=== PATIENT | male | born 1980 | race Caucasian/White ===

== ENCOUNTER 2018-08-24 19:23 | Emergency (ER) | payer OTHER ==
--- NOTE | 2018-08-24 20:08 | ER Document Report ---
ED Medical Screen (RME) - General Chief Complaint: Feet Swelling Stated Complaint: LEFT FOOT PAIN WITH SWELLING Time Seen by Provider: 08/24/18 20:06 Mode of Arrival: Ambulatory Information source: Patient Notes: Patient presents complaining of left foot pain and swelling for the past 2 weeks. Patient denies any injury. 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 I have greeted and performed a rapid initial assessment of this patient. A comprehensive ED assessment and evaluation of the patient, analysis of test results and completion of the medical decision making process will be conducted by additional ED providers. TRAVEL OUTSIDE OF THE [place] IN LAST 30 DAYS: No - Related Data Allergies/Adverse Reactions: acetaminophen [From Vicodin] Allergy (Mild, Verified 08/24/18 19:30) hydrocodone [From Vicodin] Allergy (Mild, Verified 08/24/18 19:30) tramadol Allergy (Mild, Verified 08/24/18 19:31) Physical Exam - Vital signs Vitals: Temp Pulse Resp BP Pulse Ox 98.0 F 100 18 127/82 H 96 08/24/18 19:41 08/24/18 19:41 08/24/18 19:41 08/24/18 19:41 08/24/18 19:41 - General Notes: 1+ edema to the left foot, generalized tenderness Course - Vital Signs Vital signs: Temp Pulse Resp BP Pulse Ox 98.0 F 100 18 127/82 H 96 08/24/18 19:41 08/24/18 19:41 08/24/18 19:41 08/24/18 19:41 08/24/18 19:41
[2018-08-24 20:44] LABS: ABSOLUTE BASOPHILS # (AUTO) 0.1 10^3/uL (0.0-0.2); ABSOLUTE EOSINOPHILS # (AUTO) 0.4 10^3/uL (0.0-0.6); ABSOLUTE LYMPHOCYTES (AUTO) 3.1 10^3/uL (0.5-4.7); EOSINOPHILS % (AUTO) 3.5 % (0-6); HEMATOCRIT 43.4 % (37.9-51.0); HEMOGLOBIN 14.9 g/dL (13.5-17.0); LYMPHOCYTES % (AUTO) 27.1 % (13-45); MEAN CORPUSCULAR HGB CONC 34.2 g/dL (32.0-36.0); MEAN CORPUSCULAR VOLUME 85 fl (80-97); MONOCYTES % (AUTO) 8.2 % (3-13); PLATELET COUNT 322 10^3/uL (150-450); RED BLOOD COUNT 5.13 10^6/uL (4.35-5.55); RED CELL DISTRIBUTION WIDTH 13.1 % (11.5-14.0); SEGMENTED NEUTROPHILS % (AUTO) 60.2 % (42-78); TOTAL CELLS COUNTED % (AUTO) 100 %; WHITE BLOOD COUNT 11.6 10^3/uL (4.0-10.5)
[2018-08-24 21:05] LABS: C-REACTIVE PROTEIN < 5.0 mg/L (<10.0)
[2018-08-24 21:24] LABS: ERYTHROCYTE SEDIMENTATION RATE 4 mm/hr (0-15)
[2018-08-24] MEDS ORDERED: OXYCODONE-ACETAMINOPHEN 5-325 MG TABLET PO ONE (23:46)
--- NOTE | 2018-08-24 23:47 | ER Document Report ---
ED General - General Chief Complaint: Feet Swelling Stated Complaint: LEFT FOOT PAIN WITH SWELLING Time Seen by Provider: 08/24/18 20:06 Mode of Arrival: Ambulatory TRAVEL OUTSIDE OF THE [place] IN LAST 30 DAYS: No - HPI Notes: 38-year-old male to the emergency department with complaints of progressively worsening left foot swelling and pain for the past 2 weeks. 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 For the past 2 weeks he is noticed swelling and pain but it got acutely worse today. Does admit that he had beef last night. He is not currently on any medicine for gout. He has been on colchicine before. States that NSAIDs tear of his stomach. States he has an appointment with the [facility] orthopedist at the end of this month for further evaluation of this foot pain - Related Data Allergies/Adverse Reactions: acetaminophen [From Vicodin] Allergy (Mild, Verified 08/24/18 19:30) hydrocodone [From Vicodin] Allergy (Mild, Verified 08/24/18 19:30) tramadol Allergy (Mild, Verified 08/24/18 19:31) Past Medical History - General Information source: Patient - Social History Smoking Status: Former Smoker Frequency of alcohol use: Rare Drug Abuse: None Family History: Reviewed & Not Pertinent Patient has suicidal ideation: No Patient has homicidal ideation: No - Past Medical History Cardiac Medical History: Reports: Hx Hypertension Renal/ Medical History: Denies: Hx Peritoneal Dialysis GI Medical History: Reports: Hx Gastroesophageal Reflux Disease Past Surgical History: Reports: Hx Orthopedic Surgery - bilateral shoulder Review of Systems - Review of Systems Constitutional: denies: Chills, Fever EENT: No symptoms reported Cardiovascular: denies: Chest pain Respiratory: denies: Cough, Short of breath Gastrointestinal: denies: Abdominal pain, Diarrhea, Nausea, Vomiting Musculoskeletal: Joint pain - Foot swelling and pain, Joint swelling Skin: Change in color - Mild left foot redness Hematologic/Lymphatic: No symptoms reported Neurological/Psychological: No symptoms reported -: Yes All other systems reviewed and negative Physical Exam - Vital signs Vitals: Temp Pulse Resp BP Pulse Ox 98.0 F 100 18 127/82 H 96 08/24/18 19:41 08/24/18 19:41 08/24/18 19:41 08/24/18 19:41 08/24/18 19:41 Interpretation: Normal - General General appearance: Appears well In distress: Mild Notes: Mild pain distress - HEENT Head: Normocephalic, Atraumatic Eyes: Normal Pupils: PERRL - Respiratory Respiratory status: No respiratory distress Chest status: Nontender Breath sounds: Normal Chest palpation: Normal - Cardiovascular Rhythm: Regular Heart sounds: Normal auscultation Murmur: No - Extremities Foot: Tender, Edema Notes: To the left foot there is noted dorsal edema and tenderness to palpation with mild erythema. The joint is not particularly hot to touch. There is no evidence of superimposed infection or abscess. There is no streaking lymphangitis of the leg. Patient does limp on the foot as he walks. But he has retained 5 out of 5 strength against resistance in flexion, extension, plantar flexion, dorsiflexion and bilateral lower extremity - Neurological Neuro grossly intact: Yes Cognition: Normal Orientation: AAOx4 [place] Coma Scale Eye Opening: Spontaneous Gwend[place]yn Coma Scale Verbal: Oriented [place] Coma Scale Motor: Obeys Commands [place] Coma Scale Total: 15 Speech: Normal Motor strength normal: LUE, RUE, LLE, RLE Sensory: Normal - Psychological Associated symptoms: Normal affect, Normal mood - Skin Skin Temperature: Warm Skin Moisture: Dry Skin Color: Normal Notes: See musculoskeletal on discussion of foot exam Course - Re-evaluation Re-evalutation: Impression:. Left gouty arthritis to the left foot. We will go ahead and start on steroid Dosepak, small amount of pain medicine, and colchicine. Encouraged him to keep his appoint with the orthopedist in [place]. Noted uric acid level and his exam is most consistent with gouty arthritis. Educated about purine-restricted diet. Patient agrees with the plan. Will discharge home. - Vital Signs Vital signs: Temp Pulse Resp BP Pulse Ox 98.1 F 94 20 126/75 H 98 08/25/18 00:15 08/25/18 00:15 08/25/18 00:15 08/25/18 00:15 08/25/18 00:15 - Laboratory Result Diagrams: 08/24/18 20:25 Laboratory results interpreted by me: 08/24/18 08/24/18 20:25 20:25 WBC 11.6 H Uric Acid 11.0 H Discharge - Discharge Clinical Impression: Gout, Left foot pain Condition: Stable Disposition: HOME, SELF-CARE Instructions: Gout ([facility]), Gout Diet ([facility]) Additional Instructions: FOLLOW UP WIHT ORTHOPEDIST SCHEDULED AT THE END OF THIS MONTH. FOLLOW UP WITH PRIMARY CARE. TAKE MEDICINES PRESCRIBED. PUSH FLUIDS. AVOID PURINE RICH FOODS SUCH BEEF, DIARY, ALCOHOL, SEAFOOD. Prescriptions: Colchicine [Colchicine 0.6 mg Tablet] 0.6 mg PO DAILY #20 tablet Methylprednisolone [Medrol Dosepack (4 mg/Tab) 21 Tab/Dosepak] 4 mg PO ASDIR PRN #21 tab.ds.pk PRN Reason: Oxycodone HCl/Acetaminophen [Percocet 5-325 mg Tablet] 1 - 2 tab PO Q6H PRN #15 tablet PRN Reason:
[2018-08-25] MEDS ORDERED: KETOROLAC TROMETHAMINE 60 MG/2 ML SDV IM ONE (00:20)
[2018-08-25 01:14] VITALS: BP 126/75
== END 2018-08-25 00:15 | disposition home or self-care (01) ==
LOC: ER 19:23
DX: M10.9 Gout, unspecified (principal); M79.672 Pain in left foot; M79.89 Other specified soft tissue disorders; I10 Essential (primary) hypertension
CPT/HCPCS: 99283; 96372; 36415; 84550; 85025; 85652; 86140; J1885

== ENCOUNTER 2019-02-21 12:32 | Emergency (ER) | payer OTHER ==
--- NOTE | 2019-02-21 13:53 | ER Document Report ---
ED Medical Screen (RME) - General TRAVEL OUTSIDE OF THE [place] IN LAST 30 DAYS: No - General Chief Complaint: Knee Pain Stated Complaint: LEFT KNEE PAIN Time Seen by Provider: 02/21/19 13:33 Notes: Patient is a 39-year-old male who presents the emergency department with a chief complaint of left knee pain. 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 Patient reports the only thing that seems to help with his discomfort is when he has the fluid drained. Patient denies recent injury. Patient reports he is not IV drug user, has not had a fever and has just been wearing his compression dressing to the left knee. (ZAHIRA CHAVEZ) - Related Data Allergies/Adverse Reactions: acetaminophen [From Vicodin] Allergy (Mild, Verified 08/24/18 19:30) hydrocodone [From Vicodin] Allergy (Mild, Verified 08/24/18 19:30) tramadol Allergy (Mild, Verified 08/24/18 19:31) Past Medical History - Social History Chew tobacco use (# tins/day): No Frequency of alcohol use: None Drug Abuse: None - Past Medical History Cardiac Medical History: Reports: Hx Hypertension Renal/ Medical History: Denies: Hx Peritoneal Dialysis GI Medical History: Reports: Hx Gastroesophageal Reflux Disease Past Surgical History: Reports: Hx Orthopedic Surgery - bilateral shoulder Physical Exam - Vital signs Vitals: Temp Pulse Resp BP Pulse Ox 97.8 F 100 18 149/60 H 96 02/21/19 12:42 02/21/19 12:42 02/21/19 12:42 02/21/19 12:42 02/21/19 12:42 Course - Re-evaluation Re-evalutation: 02/21/19 13:53 I have greeted and performed a rapid initial assessment of this patient. A comprehensive ED assessment and evaluation of the patient, analysis of test results and completion of the medical decision making process will be conducted by additional ED providers. (ZAHIRA CHAVEZ) - Vital Signs Vital signs: Temp Pulse Resp BP Pulse Ox 98.1 F 93 18 126/80 H 95 02/21/19 18:02 02/21/19 18:02 02/21/19 18:02 02/21/19 18:02 02/21/19 18:02
--- NOTE | 2019-02-21 14:41 | RADIOLOGY REPORT (SQ) ---
EXAM DESCRIPTION: KNEE LEFT 4 VIEW COMPLETED DATE/TIME: 02/21/2019 2:27 pm REASON FOR STUDY: left knee COMPARISON: None. NUMBER OF VIEWS: Four views. TECHNIQUE: AP, lateral, and both oblique radiographic images acquired of the left knee. LIMITATIONS: None. FINDINGS: MINERALIZATION: Normal. BONES: No acute fracture or dislocation. No worrisome bone lesions. JOINT: Small effusion. SOFT TISSUES: No soft tissue swelling. No radio-opaque foreign body. OTHER: No other significant finding. IMPRESSION: Small joint effusion without evidence of acute bony abnormality. TECHNICAL DOCUMENTATION: JOB ID: [id number] [employer]- All Rights Reserved Reading location - IP/workstation name: [email or web address]
--- NOTE | 2019-02-21 15:09 | ER Document Report ---
ED Extremity Problem, Lower - General Chief Complaint: Knee Pain Stated Complaint: LEFT KNEE PAIN Time Seen by Provider: 02/21/19 13:33 TRAVEL OUTSIDE OF THE [place] IN LAST 30 DAYS: No - HPI Notes: 39-year-old male says he is been to 5 different [address] trying to get fluid drained from his knee today says he has a history of recurrent knee effusions and "chondromalacia" in bilateral knees. he presents today for left knee swelling and pain over the last few days it has been gradual. Denies fever chills sweats or any overlying skin changes. He says is very painful to move the knee through any range of motion. He is avoiding bearing weight mainly to avoid range of motion associated with that but when he is just standing the active bearing weight does not worsen the pain. Reports he is never had a history of septic joint or been diagnosed with gout, does not think that they have ever tested his joint fluid for gout only have told him that he has had high uric acid levels in the blood. The last time he had any injections of anything into any of his knees was years ago he said. He did not have regular steroid injections but did have a provider that was intermittently doing drainage of his knee effusions when he was very active in the [employer] and injecting with synovium he thinks, which he believes is like a synovial fluid to add cushioning to the joint space. He has not had any inciting trauma or activities that he knows of its been gradual. He is been trying to elevate and keep the compression wrap on it but that is not seeming to help. He denies any bulging or pain behind the knee or instability of the knee on weightbearing. Is never had any retained hardware or surgeries in bilateral knees. He has had bilateral shoulder surgeries but otherwise still has no retained hardware surgery - Related Data Allergies/Adverse Reactions: acetaminophen [From Vicodin] Allergy (Mild, Verified 08/24/18 19:30) hydrocodone [From Vicodin] Allergy (Mild, Verified 08/24/18 19:30) tramadol Allergy (Mild, Verified 08/24/18 19:31) Past Medical History - Social History Smoking Status: Current Some Day Smoker Chew tobacco use (# tins/day): No Frequency of alcohol use: None Drug Abuse: None Family History: Reviewed & Not Pertinent Patient has suicidal ideation: No Patient has homicidal ideation: No - Past Medical History Cardiac Medical History: Reports: Hx Hypertension Renal/ Medical History: Denies: Hx Peritoneal Dialysis GI Medical History: Reports: Hx Gastroesophageal Reflux Disease Past Surgical History: Reports: Hx Orthopedic Surgery - bilateral shoulder Review of Systems - Review of Systems Constitutional: No symptoms reported EENT: No symptoms reported Cardiovascular: No symptoms reported Respiratory: No symptoms reported Gastrointestinal: No symptoms reported Genitourinary: No symptoms reported Male Genitourinary: No symptoms reported Musculoskeletal: See HPI Skin: No symptoms reported Hematologic/Lymphatic: No symptoms reported Neurological/Psychological: No symptoms reported Physical Exam - Vital signs Vitals: Temp Pulse Resp BP Pulse Ox 97.8 F 100 18 149/60 H 96 02/21/19 12:42 02/21/19 12:42 02/21/19 12:42 02/21/19 12:42 02/21/19 12:42 Interpretation: Normal - General General appearance: Appears well - Nontoxic-appearing no distress, Alert - HEENT Head: Normocephalic, Atraumatic Eyes: Normal Pupils: PERRL - Respiratory Respiratory status: No respiratory distress Chest status: Nontender Breath sounds: Normal Chest palpation: Normal - Cardiovascular Rhythm: Regular Heart sounds: Normal auscultation Murmur: No - Abdominal Inspection: Normal Distension: No distension Bowel sounds: Normal Tenderness: Nontender Organomegaly: No organomegaly - Back Back: Normal, Nontender - Extremities General upper extremity: Normal inspection, Nontender, Normal color, Normal ROM, Normal temperature General lower extremity: Other - L knee has obvious swelling compared to R. No overlying skin changes. The compartments are soft in the lower extremity as well as the proximal leg. Pulse 2+ popliteal dorsalis pedis. Distal extremity is warm well perfused. Intact discrimination of sharp and dull in all distal sensory distributions. Palpable effusion present at the lateral medial and anterior portions without predominance of one area of knee effusion. No Vaughn's cyst or other popliteal masses or tenderness. No calf tenderness or point bony patellar or tibial or ankle tenderness. No pain with full range of motion of the hip. He does have pain with active or passive motion in that knee joint. Again no warmth no overlying skin changes. - Neurological Neuro grossly intact: Yes Cognition: Normal Orientation: AAOx4 [place] Coma Scale Eye Opening: Spontaneous [place] Coma Scale Verbal: Oriented [place] Coma Scale Motor: Obeys Commands [place] Coma Scale Total: 15 Speech: Normal Motor strength normal: LUE, RUE, LLE, RLE Sensory: Normal - Psychological Associated symptoms: Normal affect, Normal mood - Skin Skin Temperature: Warm Skin Moisture: Dry Skin Color: Normal Course - Re-evaluation Re-evalutation: Reviewed Multiview x-ray of the left knee. No acute fractures no obvious joint degeneration or evidence of calcium deposition. + Knee effusion. he and discussed i can call if results show any crystals c/w gout/pseudogout, but that i believe on his exam and hx this is likely an effusion from OA w/o evidence of infection. discussed though signs to watch which would indicate infection erythena f/c/s/n/v, sever pain w/ any movement at the joint and worsening swelling despite elevation, nsaids, icing, and avoiding exacerbating behaviors in next few days. - Vital Signs Vital signs: Temp Pulse Resp BP Pulse Ox 98.1 F 93 18 126/80 H 95 02/21/19 18:02 02/21/19 18:02 02/21/19 18:02 02/21/19 18:02 02/21/19 18:02 Procedures - Joint Aspiration Left Knee Time completed: 17:40 Consent obtained: Yes Joint aspiration pre-procedure: Sterile PPE donned, Chloraprep applied - x3 Anesthetic type: 1% Lidocaine mL's of anesthetic: 6 Needle size: 25 Amount/type of drainage: Clear yellow synovial fluid aspirated on lateral approach 5cc Number of attempts: 1 Complications: No Discharge - Discharge Clinical Impression: Knee effusion, left Condition: Fair Disposition: HOME, SELF-CARE Additional Instructions: Today in the emergency department we performed an x-ray which did not show any new fractures just the joint effusion. We were able to pull 5 ml of synovial fluid on aspiration. If this does not show any crystals consistent with gout or pseudogout I do not currently feel concerned that this is a septic or infected joint. I am expecting you to feel much better in the next few days with the injection we did of the lidocaine and steroid. Again it is not recommended to have recurrent or repeat steroid injections and joint spaces. Try to elevate the extremity whenever you are sitting down and avoid standing or doing activities that bother it. Try to move as tolerated but again do not do things that make it worse or overuse it. Try using ibuprofen every 6 hours as needed for pain and continue to eat and drink well. You can also ice the joint in the next few days few times a day as you can. Mainly it will be important to elevate it to allow some of the swelling to start to come down. Prescriptions: Ibuprofen 600 mg PO Q6HP PRN 3 Days #36 tablet PRN Reason:
[2019-02-21] MEDS ORDERED: TRIAMCINOLONE ACETONIDE INJ 10 MG/1 ML 5 ML VIAL INJ ONE (16:30)
[2019-02-21] MEDS ORDERED: LIDOCAINE 1% INJ (10 MG/ML) 10 ML MDV INJ ONE (16:30)
[2019-02-21 18:03] VITALS: BP 126/80
[2019-02-21] MEDS ORDERED: KETOROLAC TROMETHAMINE INJ/PF 30 MG/1 ML SDV IV ONE (18:15)
[2019-02-21] MEDS ORDERED: KETOROLAC TROMETHAMINE INJ/PF 30 MG/1 ML SDV IM ONE (18:23)
[2019-02-21 18:42] LABS: CALCIUM PYROPHOSPHATE CRYSTALS NONE OBSERVED; MONOSODIUM URATE CRYSTALS NONE OBSERVED; OTHER CRYSTALS NONE OBSERVED
[2019-02-21 19:03] LABS: FLUID APPEARANCE CLOUDY; FLUID COLOR YELLOW; FLUID SOURCE KNEE; FLUID TYPE SYNOVIAL; FLUID VISCOSITY MODERATELY VISCOUS
== END 2019-02-21 18:57 | disposition home or self-care (01) ==
LOC: ER 12:32
DX: M25.462 Effusion, left knee (principal); M25.562 Pain in left knee; F17.200 Nicotine dependence, unspecified, uncomplicated; I10 Essential (primary) hypertension; Z88.8 Allergy status to other drugs, medicaments and biological substances; Z88.6 Allergy status to analgesic agent; Z88.5 Allergy status to narcotic agent
CPT/HCPCS: 99283; 96372; 89050; 89060; 73564; 20610; J1885; J3301

== ENCOUNTER 2019-06-17 12:00 | Emergency (ER) | payer OTHER ==
[2019-06-17 12:09] VITALS: BP 139/79
--- NOTE | 2019-06-17 12:19 | ER Document Report ---
ED Head/Face/Scalp Injury - General Chief Complaint: Facial Injury Stated Complaint: FACIAL INJURY Time Seen by Provider: 06/17/19 12:10 Mode of Arrival: Ambulatory Information source: Patient Notes: 39-year-old male presented to ED for a laceration to the face just above the left upper lip and inside the mouth at the same area. These are 2 different lacerations one is the tooth cut the inner part of the lip and the break she cut the outer part of the lip. He states he was working on the brake shoe and got frustrated through it it bounced off the cement and hit him in the face. TRAVEL OUTSIDE OF THE [place] IN LAST 30 DAYS: No - HPI Patient complains to provider of: Injury, Laceration, Pain, Swelling Injury to: Face, Mouth Location of problem: Mouth, Other Occurred: Just prior to arrival - Is Where: Home, Outdoors Timing: Still present Context: Direct blow Loss consciousness: No loss of consciousness Remembers: Injury, Coming to hospital - Related Data Allergies/Adverse Reactions: acetaminophen [From Vicodin] Allergy (Mild, Verified 06/17/19 12:10) hydrocodone [From Vicodin] Allergy (Mild, Verified 06/17/19 12:10) tramadol Allergy (Mild, Verified 06/17/19 12:10) Past Medical History - General Information source: Patient - Social History Smoking Status: Current Every Day Smoker Smoking Education Provided: Yes - 4 minutes Frequency of alcohol use: Occasional Drug Abuse: None Occupation: Marine Family History: Reviewed & Not Pertinent Patient has suicidal ideation: No Patient has homicidal ideation: No - Past Medical History Cardiac Medical History: Reports: Hx Hypertension Pulmonary Medical History: Reports: None EENT Medical History: Reports: None Neurological Medical History: Reports: None Endocrine Medical History: Reports: None Renal/ Medical History: Reports: None Malignancy Medical History: Reports None GI Medical History: Reports: Hx Gastroesophageal Reflux Disease Musculoskeletal Medical History: Reports None Skin Medical History: Reports None Psychiatric Medical History: Reports: None Traumatic Medical History: Reports: None Infectious Medical History: Reports: None Past Surgical History: Reports: Hx Orthopedic Surgery - bilateral shoulder - Immunizations Immunizations up to date: Yes Hx Diphtheria, Pertussis, Tetanus Vaccination: Yes Review of Systems - Review of Systems Constitutional: No symptoms reported EENT: No symptoms reported Cardiovascular: No symptoms reported Respiratory: No symptoms reported Gastrointestinal: No symptoms reported Genitourinary: No symptoms reported Male Genitourinary: No symptoms reported Musculoskeletal: No symptoms reported Skin: No symptoms reported Hematologic/Lymphatic: No symptoms reported Neurological/Psychological: No symptoms reported -: Yes All other systems reviewed and negative Physical Exam - Vital signs Vitals: Temp Pulse Resp BP Pulse Ox 98.8 F 96 16 139/79 H 97 06/17/19 12:07 06/17/19 12:07 06/17/19 12:07 06/17/19 12:07 06/17/19 12:07 Interpretation: Normal - General General appearance: Appears well, Alert - HEENT Head: Open wounds, Tenderness Eyes: Normal Pupils: PERRL Ears: Normal External canal: Normal Tympanic membrane: Normal Sinus: Normal Nasal: Normal Mouth/Lips: Normal Mucous membranes: Other Pharynx: Normal - Oral laceration Neck: Normal - Respiratory Respiratory status: No respiratory distress Chest status: Nontender Breath sounds: Normal Chest palpation: Normal - Cardiovascular Rhythm: Regular Heart sounds: Normal auscultation Murmur: No - Abdominal Inspection: Normal Distension: No distension Bowel sounds: Normal Tenderness: Nontender Organomegaly: No organomegaly - Back Back: Normal, Nontender - Extremities General upper extremity: Normal inspection, Nontender, Normal color, Normal ROM, Normal temperature General lower extremity: Normal inspection, Nontender, Normal color, Normal ROM, Normal temperature, Normal weight bearing. No: Vita's sign - Neurological Neuro grossly intact: Yes Cognition: Normal Orientation: AAOx4 Gwendolyn Coma Scale Eye Opening: Spontaneous [place] Coma Scale Verbal: Oriented [place] Coma Scale Motor: Obeys Commands [place] Coma Scale Total: 15 Speech: Normal Motor strength normal: LUE, RUE, LLE, RLE Sensory: Normal - Psychological Associated symptoms: Normal affect, Normal mood - Skin Skin Temperature: Warm Skin Moisture: Dry Skin Color: Normal Skin irregularity: Laceration Location of irregularity: Face - Laceration about the left side of the upper lip irregular about 1-1/2 cm very superficial Course - Re-evaluation Re-evalutation: 06/17/19 12:27 Cleaned facial laceration with soap and water dried well used Dermabond to close. Patient started on Augmentin. - Vital Signs Vital signs: Temp Pulse Resp BP Pulse Ox 98.8 F 96 16 139/79 H 97 06/17/19 12:10 06/17/19 12:07 06/17/19 12:07 06/17/19 12:07 06/17/19 12:07 Procedures - Laceration/Wound Repair Right chest above left upper lip Time completed: 12:28 Wound length (cm): 1.5 Wound's Depth, Shape: Superficial, Irregular Laceration pre-procedure: Shur-Clens applied Anesthetic type: Other - 0 Volume Anesthetic (mLs): 0 Wound explored: Contaminated Irrigated w/ Saline (mLs): 200 Wound Repaired With: Dermabond Post-procedure NV exam normal: Yes Complications: No Discharge - Discharge Clinical Impression: Facial laceration Qualifiers: Encounter type: initial encounter Qualified Code(s): S01.81XA - Laceration without foreign body of other part of head, initial encounter Laceration of oral cavity Qualifiers: Encounter type: initial encounter Qualified Code(s): S01.512A - Laceration without foreign body of oral cavity, initial encounter Condition: Stable Disposition: HOME, SELF-CARE Additional Instructions: NON-SUTURED LACERATION: Your laceration did not require suturing. Some lacerations cannot be sutured because of increased infection risk, while others simply don't need stitches because they are shallow or very short. Your injury should be protected while it heals. Usually complete healing takes 10 to 14 days. Keep the dressing clean and dry, and change it every day. If you notice increasing pain, redness, swelling, drainage, or tender lumps in the armpit or groin above the injury, infection may be present. You should call the doctor at once. Dermabond (Skin Adhesive Closure) Skin adhesive (such as Dermabond) is a quick-drying glue that remains slightly flexible while it holds wound edges together. It can substitute for stitches on some cuts. The film will usually fall off the skin after 5 to 10 days. Keep the wound area clean and dry. Do not soak or scrub the wound. Don't swim. You can shower briefly after 24 hours. Gently blot the area dry with a soft towel. Don't apply ointments. If there is a dressing, change it immediately if it gets wet. Do not place tape directly over the adhesive film, because the tape may pull the film off your skin as you remove it. Don't bump the wound area. If there's risk of injury, keep the area well- padded. Avoid stretching of the skin. Do not scratch or pick at the adhesive film. Avoid prolonged exposure to sunlight or tanning lamps. Return if there is increasing pain, swelling, redness, or drainage, or if the wound edges seem to open or separate. ORAL LACERATION, NOT SUTURED: The laceration in your mouth was not sutured because the physician felt it would heal well without it. Suturing does increase the risk of infection somewhat, as germs in the wound are trapped inside. Most cuts in the mouth heal quickly with no significant scar. The wound will appear white and rough tomorrow. This unusual appearance is normal for an oral laceration, and will persist until healing is complete. You should rest for 24 hours to minimize swelling. Avoid tart or spicy foods, or hard foods which might stick in the cut (like tortilla chips), for a few days. If any signs of infection occur (swelling, redness of the skin directly over the laceration area, increasing tenderness, tender lumps below the jaw or on the sides of the neck, or fever), see the doctor immediately. SOAP CLEANSING: Gently wash the wound daily using a mild soap (like Ivory, Phisoderm, Neutrogena). Use warm water, rubbing gently until all debris, ooze, and crusting have been washed from the wound. Allow to dry briefly (about 10 minutes) after cleaning. Repeat this cleansing at least three times a day for the first two days and then once or twice a day. PROPHYLACTIC ANTIBIOTIC: The antibiotics which have been prescribed are designed to decrease the risk of infection. Only certain types of wounds benefit from this -- the typical cut, scrape, or burn DOES NOT require antibiotics. Of course, infection can still occur despite the use of prophylactic antibiotics. Your wound will heal with less chance of an infectious complication if you take the medication as directed. The most important dose is the FIRST dose, so don't delay filling the prescription! FOLLOW-UP CARE: If you have been referred to a physician for follow-up care, call the physicians office for an appointment as you were instructed or within the next two days. If you experience worsening or a significant change in your symptoms, notify the physician immediately or return to the Emergency Department at any time for re-evaluation. Prescriptions: Amoxicillin/Potassium Clav [Augmentin 875-125 Tablet] 1 tab PO Q12 #20 tablet
== END 2019-06-17 12:27 | disposition home or self-care (01) ==
LOC: ER 12:00
DX: S01.81XA Laceration without foreign body of other part of head, initial encounter (principal); S01.512A Laceration without foreign body of oral cavity, initial encounter; W20.8XXA Other cause of strike by thrown, projected or falling object, initial encounter; Y92.009 Unspecified place in unspecified non-institutional (private) residence as the place of occurrence of the external cause; F17.200 Nicotine dependence, unspecified, uncomplicated; Z71.6 Tobacco abuse counseling; I10 Essential (primary) hypertension; Z88.8 Allergy status to other drugs, medicaments and biological substances; Z88.6 Allergy status to analgesic agent; Z88.5 Allergy status to narcotic agent
CPT/HCPCS: 99282; 99406

== ENCOUNTER → 2019-12-08 | Outpatient (CLI) | payer OTHER ==
--- NOTE | 2019-12-08 14:58 | RADIOLOGY REPORT (SQ) ---
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 TECHNIQUE: CT scanogram of the bilateral lower extremities is performed including pelvis to ankles. Measurements of femur, tibia, and entire lower extremities performed by the radiologist and saved to PACS. All CT scanners at this facility use dose modulation, iterative reconstruction, and/or weight based d osing when appropriate to reduce radiation dose to as low as reasonably achievable (ALARA). [facility]: Dose Right [facility]: CareDose [facility]: Dose Right [facility]: Teradose 4D [facility]: [employer] RADIATION DOSE: mGy. LIMITATIONS: None. FINDINGS: RIGHT: FEMUR: 46.1 cm. TIBIA: 37.4 cm. TOTAL RIGHT LOWER EXTREMITY LENGTH (INCLUDES THE KNEE JOINT SPACE): 82.7 cm. LEFT: FEMUR: 46.3 cm. TIBIA: 37.5 cm. TOTAL LEFT LOWER EXTREMITY LENGTH (INCLUDES THE KNEE JOINT SPACE): 83.1 cm. IMPRESSION: LEG LENGTH MEASUREMENTS DETAILED ABOVE. TECHNICAL DOCUMENTATION: JOB ID: [id number] Quality ID # [id number]: Final reports with documentation of one or more dose reduction techniques (e.g., Au tomated exposure control, adjustment of the mA and/or kV according to patient size, use of iterative reconstruction technique) 2010 [employer]- All Rights Reserved Reading location - IP/workstation name: [email or web address]
== END ==
LOC: RAD 13:21
PROVIDERS: ATTEND Podiatrist Foot & Ankle Surgery
DX: Q72.819 Congenital shortening of unspecified lower limb (principal)
CPT/HCPCS: 77073